=== PATIENT | female | born 1955 | race Caucasian/White ===

== ENCOUNTER 2018-08-04 07:28 | Day surgery (SDC) | payer MEDICAID ==
[2018-07-31 13:14] LABS: BASOPHILS % (AUTO) 0.6 % (0-1); EOSINOPHILS # (AUTO) 0.1 X10'3 (0-0.9); EOSINOPHILS % (AUTO) 1.6 % (0-6); LYMPHOCYTES # (AUTO) 1.4 X10'3 (1.1-4.8); LYMPHOCYTES % (AUTO) 31.3 % (21-51); MEAN CORPUSCULAR HEMOGLOBIN 29.4 PG (27.0-31.0); MEAN PLATELET VOLUME 10.4 FL (7.4-10.4); MONOCYTES # (AUTO) 0.3 X10'3 (0-0.9); MONOCYTES % (AUTO) 6.2 % (2-12); NEUTROPHILS # (AUTO) 2.7 X10'3 (1.8-7.7); NEUTROPHILS % (AUTO) 60.3 % (42-75); PRE OP HEMATOCRIT 40.2 % (35.0-45.0); PRE OP HEMOGLOBIN 13.3 g/dL (12.0-16.0); PRE OP PLATELET COUNT 182 X10'3 (140-440); RED BLOOD COUNT 4.52 X10'6 (4.20-5.60); RED CELL DISTRIBUTION WIDTH 15.1 % (11.5-14.5)
[2018-07-31 13:30] LABS: ALBUMIN 3.6 G/DL (3.4-5.0); ALKALINE PHOSPHATASE 85 IU/L (46-116); BLOOD UREA NITROGEN 16 MG/DL (7-18); BUN/CREATININE RATIO 21.9 (6.6-38.0); CALCIUM 9.4 MG/DL (8.5-10.1); CHLORIDE 106 MMOL/L (99-107); CREATININE 0.73 MG/DL (0.40-0.90); PRE OP ALT 24 U/L (30-65); PRE OP ANION GAP 7 (8-16); PRE OP AST 19 U/L (10-37); PRE OP BILIRUB, TOTAL 0.4 MG/DL (0.0-1.0); PRE OP GLUCOSE 98 MG/DL (70-104); PRE OP SODIUM 142 MMOL/L (135-145); TOTAL CARBON DIOXIDE 29.4 MMOL/L (24-32); TOTAL PROTEIN 7.1 G/DL (6.4-8.2); eGFR 81 ML/MIN
[~2018-08-04] VITALS: Ht 149.9 cm; Wt 55.4 kg
[~2018-08-04 07:28] MED LIST: ALBU18HF2 INH; ATOR10TA70 PO; DOCUMENT DATE & TIME OF BETA-BLOCKER PO ONE; DULO30CA51 PO; FLUT16SP26; IBUP-1986 PO; METO-384 PO; TIOT4MIS3 IH; albuterol 2.5 MG/3 ML nebule NEB ONE; ceFAZolin 1GM/D5W- ADD-VANTAGE 50 ML IV ONE; famotidine 20mg tablet PO ONE; ringers solution, lacted 1,000 ML IV SCH
[2018-08-04 07:30] VITALS: BP 120/60
[2018-08-04] MEDS ORDERED: BUPIVAcaine/PF 2.5mg/ml (0.25%) 10ml vial ONE (09:25)
[2018-08-04] MEDS ORDERED: LIDOcaine 0.5% (5mg/ml) 50ml vial ONE (09:38)
[2018-08-04] MEDS ORDERED: fentaNYL/PF 50MCG/1 ML 2ML syringe ONE ×2 (09:43→10:08)
[2018-08-04] MEDS ORDERED: midazolam 2 mg/2 ml injection ONE (09:43)
[2018-08-04] MEDS ORDERED: propofol inj 40 ML IV ONE (10:37)
[2018-08-04 10:54] VITALS: BP 131/74
[2018-08-04 11:04] VITALS: BP_SYST 114; BP_SYST 115; BP_DIAS 49; BP_DIAS 60
[2018-08-04 11:14] VITALS: BP 116/78
[2018-08-04 11:24] VITALS: BP 118/79
== END 2018-08-04 11:34 | disposition home or self-care (01) ==
LOC: PAS 07:28
PROVIDERS: ATTEND Orthopaedic Surgery Hand Surgery
DX: M19.041 Primary osteoarthritis, right hand (principal); M77.8 Other enthesopathies, not elsewhere classified; J44.9 Chronic obstructive pulmonary disease, unspecified; I49.8 Other specified cardiac arrhythmias; I10 Essential (primary) hypertension; Z79.891 Long term (current) use of opiate analgesic; Z79.1 Long term (current) use of non-steroidal anti-inflammatories (NSAID); Z85.41 Personal history of malignant neoplasm of cervix uteri; Z86.69 Personal history of other diseases of the nervous system and sense organs; Z88.5 Allergy status to narcotic agent; Z87.891 Personal history of nicotine dependence; Z72.89 Other problems related to lifestyle; Z79.899 Other long term (current) drug therapy; Z98.890 Other specified postprocedural states
CPT/HCPCS: 26860; 26861; 36415; 80053; 85025; 93005; A6222; A6449; C1713; J0690; J2001; J2250; J2704; J3010; J3490; J7120; A7000